=== PATIENT | male | born 1975 | race Caucasian/White ===

== ENCOUNTER → 2019-05-09 10:32 | Day surgery (SDC) | payer BC ==
--- NOTE | 2019-05-04 10:42 | HP ---
PREOPERATIVE HISTORY AND PHYSICAL: DATE OF SURGERY/ADMISSION: 05/09/19 [facility] DATE OF OFFICE VISIT/ENCOUNTER: 05/03/19 ATTENDING SURGEON: Rosaura Hurtado MD.* (DICTATED BY PHAN MANNING) PROCEDURE: Open reduction and internal fixation right second metacarpal. HISTORY OF PRESENT ILLNESS: This is a 44-year-old man who sustained injury to his right hand when he tripped and fell while carrying some wood. He was out in the hill at the time and he jammed his hand against another block of wood and suffered an open fracture of the second metacarpal neck, right hand. X- rays showed a displaced second metacarpal neck fracture. He has been taking Keflex and has not showed any signs of infection. He denies any associated numbness or tingling or other injury. He has consented to proceed with surgical intervention at this time. PAST MEDICAL HISTORY: Unremarkable. PAST SURGICAL HISTORY: Vasectomy. MEDICATIONS: Ibuprofen p.r.n. ALLERGIES: No known drug allergies. FAMILY MEDICAL HISTORY: Noncontributory. 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 He denies tobacco use and recreational drug use. He drinks alcohol on occasion. REVIEW OF SYSTEMS: Negative for general, cephalic, cardiovascular, respiratory , GI, other musculoskeletal, integumentary, endocrine, neurologic, hematologic symptoms. Infectious Disease: Negative for MRSA, hepatitis C, and HIV. PHYSICAL EXAMINATION GENERAL: Well-developed, well nourished 44-year male in no acute distress. VITAL SIGNS: Height 6 feet tall, weight 204 pounds. Pulse rate 72, blood pressure 138/76. HEENT: Normocephalic, atraumatic. Pupils are equal, round and reactive to light and accommodation. Extraocular movements are intact. Throat is clear. NECK: Supple. No palpable lymph nodes. PULMONARY: Lungs are clear to auscultation bilaterally. No wheezes, rales or rhonchi. CARDIOVASCULAR: Regular rate and rhythm. S1 and S2. No murmurs, rubs or gallops. No edema. ABDOMEN: Positive bowel sounds. Soft and nontender. NEUROLOGICAL: Alert and oriented x3. Cranial nerves II through XII are intact. Sensation is intact to light touch. MUSCULOSKELETAL: On exam of his right hand, he has a considerable amount of swelling and ecchymosis. There is a tiny puncture wound over the second metacarpal head with scant bloody drainage, but no sign of infection. He can flex and extend his fingers fairly well, but there is a slight rotational deformity of the index finger. He cannot make a full fist because of the swelling and pain. IMAGING STUDIES: X-rays AP, lateral and oblique of the right hand showed displaced second metacarpal neck fracture. IMPRESSION: Right second metacarpal neck fracture. PLAN: The patient is scheduled to undergo an open reduction internal fixation of the right second metacarpal with Dr. Hurtado on 05/09/19. He will return to the office 10 days postop for followup and suture removal. A prescription for Bladen was e-scribed to the patient's pharmacy for postoperative pain management. PHAN MANNING [id number]/[facility] #: [id number] KIM
[~2019-05-09 10:32] MED LIST: Acetaminophen TAB* 325 MG PO PRN; Buffered Lidocaine 1% SYRIN* 1 ML/SYRINGE INTRADERM ONE; Bupivacaine 0.5% SDV PF* 30ML VIAL ONE; DiMENhydriNATE IV* 50 MG/ML VIAL IV PUSH PRN; DiMENhydriNATE IV* 50 MG/ML VIAL ONE; Ketorolac INJ* 30 MG/ML 1 ML VIAL IV PRN; Ketorolac INJ* 30 MG/ML 1 ML VIAL ONE; Lactated Ringers 1000 ML Bag* 1,000 ML IV SCH; Lidocaine 2% PF * 5 ML VIAL ONE; Midazolam* 1 MG/ML 2 ML VIAL (2 MG) ONE; Morphine 4 MG/ML VIAL (1 ml) 4 MG/ML VIAL IV PRN; Naloxone* 0.4 MG/ML 1 ML VIAL IV PRN; Ondansetron INJ* 2 MG/ML VIAL ONE; Propofol* 10 MG/ML 20 ML BTL ONE; ceFAZolin 2 GM PREMIX in ORs 2 GM/50 ML BAG ONE; fentaNYL* 50 MCG/ML 2 ML VIAL (100 MCG VIAL) IV PRN; fentaNYL* 50 MCG/ML 2 ML VIAL (100 MCG VIAL) ONE; fentaNYL* 50 MCG/ML 5 ML VIAL (250 MCG VIAL) ONE; oxyCODONE/Acetamin 5/325 MG* TAB ONE; oxyCODONE/Acetamin 5/325 MG* TAB PO PRN
[2019-05-09 15:40] VITALS: BP 134/70
--- NOTE | 2019-05-09 22:19 | OP ---
DATE OF OPERATION: 05/09/19 [facility] DATE OF : 79 SURGEON: Rosaura Hurtado MD PRICE CHANGER: PHAN Sales ANESTHESIA: General. PRE-OP DIAGNOSIS: Right index finger metacarpal fracture. POST-OP DIAGNOSIS: Right index finger metacarpal fracture. PROCEDURE: Open reduction internal fixation of right index finger metacarpal. ESTIMATED BLOOD LOSS: Zero. TOURNIQUET TIME: About 40 minutes. INDICATION FOR PROCEDURE: David is a 44-year-old man who fell and injured his right hand. He suffered a comminuted displaced fracture of the index finger metacarpal neck. He presents for ORIF. DESCRIPTION OF PROCEDURE: The patient was brought to the operating room, was given a general anesthetic, placed in the supine position on the operating table. A tourniquet was placed around his right upper arm. Skin of his right upper extremity was prepped and draped in the usual sterile fashion. The hand and forearm were exsanguinated and the tourniquet elevated to 250 mmHg. A longitudinal incision was made on the dorsal radial border of the first metacarpal. We dissected through the subcutaneous tissue down to the periosteum , which was incised. The extensor bell was incised, so we could access the distal fragment. The fracture was reduced and then secured with a Y-shaped plate from the 1.5 mm module of the hand modular set. Three distal screws were placed and 4 proximal screws were placed. The position of the hardware and fracture fragments was checked on the C-arm in the AP and lateral views and found to be satisfactory. The wound was irrigated. The periosteum was repaired over the plate. The skin edges were reapproximated with 4-0 nylon suture. The wound was dressed with Xeroform, 4x4, Webril, and an Navneet wrap with a splint. The patient tolerated the procedure well and was brought to the recovery room in good condition. [id number]/[facility] #: [id number] [facility] CENTERDeclan
== END | disposition home or self-care (01) ==
LOC: OREAST 10:32
PROVIDERS: ATTEND Orthopaedic Surgery
DX: S62.330A Displaced fracture of neck of second metacarpal bone, right hand, initial encounter for closed fracture (principal); W01.0XXA Fall on same level from slipping, tripping and stumbling without subsequent striking against object, initial encounter; Y92.9 Unspecified place or not applicable
CPT/HCPCS: 76000; A9270-GY; C1713; C1776; J0690; J1240; J1885; J2250; J2405; J2704; J3010; J3490